=== PATIENT | male | born 1945 | race Caucasian/White ===

== ENCOUNTER 2018-04-26 08:45 | Emergency (ER) | payer OTHER ==
[~2018-04-26] VITALS: Ht 167.6 cm; Wt 68.0 kg
[2018-04-26] MEDS ORDERED: ANTIVERT25 MG PO (09:14)
[2018-04-26] MEDS ORDERED: ZOFRAN ODT4 MG PO (09:14)
[2018-04-26 09:18] VITALS: BP 125/63
== END 2018-04-26 09:42 | disposition home or self-care (01) ==
LOC: ER 08:45
DX: R42 Dizziness and giddiness (principal)